=== PATIENT | female | born 2000 | race Caucasian/White ===

== ENCOUNTER 2019-02-09 00:44 | Emergency (ER) | payer BC ==
[~2019-02-09] VITALS: Ht 160 cm; Wt 47.7 kg
[2019-02-09 01:09] VITALS: BP 166/79; TEMP 98.1
[2019-02-09 03:40] VITALS: PULSE 99
== END 2019-02-09 03:40 | disposition home or self-care (01) ==
LOC: COL.ER 00:44
DX: S09.90XA Unspecified injury of head, initial encounter (principal); R40.2412 Glasgow coma scale score 13-15, at arrival to emergency department; V89.2XXA Person injured in unspecified motor-vehicle accident, traffic, initial encounter